=== PATIENT | female | born 1985 | race Caucasian/White ===

== ENCOUNTER 2023-08-29 22:25 | Emergency (ER) | payer OTHER ==
[2023-08-29 22:29] VITALS: BP 137/85; PULSE 88; RESP 18; TEMP 98.2; BMI 26.3
[2023-08-30] MEDS ORDERED: metroNIDAZOLE 250 MG TABLET ONE (00:15)
[2023-08-30] MEDS ORDERED: FLUCONAZOLE 150 MG TABLET PO ONE (00:15)
[2023-08-30] MEDS: metroNIDAZOLE 500 MG TABLET PO ONE (00:20)
[2023-08-30] MEDS: FLUCONAZOLE 150 MG TABLET PO ONE (00:20)
== END 2023-08-30 00:27 | disposition home or self-care (01) ==
LOC: JER 22:25
DX: N76.0 Acute vaginitis (principal); B96.89 Other specified bacterial agents as the cause of diseases classified elsewhere; B37.31 Acute candidiasis of vulva and vagina; R10.31 Right lower quadrant pain
CPT/HCPCS: 99283-25